=== PATIENT | female | born 1945 | race Caucasian/White ===

== ENCOUNTER 2019-08-06 13:18 | Outpatient (CLI) | payer MEDICARE, SELFPAY ==
--- NOTE | 2019-08-06 13:30 | US_ITS ---
WS: [id number] ABDOMINAL ULTRASOUND LIMITED REASON FOR VISIT: LUQ localized swelling TECHNIQUE: Grayscale and Doppler ultrasound examination of the abdomen. FINDINGS: Left kidney measured 8.85 x 4.44 x 3.97 cm, cortex measured 1.38 cm. The left upper quadrant of the abdomen showed no definite pathological changes no evidence of ascites . The area pain. No evidence of masses or cystic changes. The spleen measures 6.9 x 3.17 cm US/US abdomen limited [id number] IMPRESSION: No definite fluid, masses, are cystic changes. The spleen was normal.
== END 2019-08-06 13:19 | disposition home or self-care (01) ==
PROVIDERS: Family Provider Registered Nurse; PCP Registered Nurse; Visit Provider Registered Nurse
DX: R19.02 Left upper quadrant abdominal swelling, mass and lump (principal)
CPT/HCPCS: 76705

== ENCOUNTER → 2019-11-19 11:32 | Outpatient (BNVA) | payer MEDICARE, SELFPAY | PROVIDERS: Family Provider Registered Nurse; PCP Registered Nurse; Visit Provider Registered Nurse | DX: D51.9 Vitamin B12 deficiency anemia, unspecified (principal); E03.9 Hypothyroidism, unspecified; E55.9 Vitamin D deficiency, unspecified; I10 Essential (primary) hypertension; R53.83 Other fatigue | CPT/HCPCS: 82306; 82607; 84443; 85025; 86141 ==

== ENCOUNTER → 2019-11-25 13:57 | Outpatient (BNVA) | payer MEDICARE, SELFPAY | PROVIDERS: Family Provider Registered Nurse; PCP Registered Nurse; Visit Provider Registered Nurse | DX: I10 Essential (primary) hypertension (principal) | CPT/HCPCS: 85025 ==

== ENCOUNTER → 2019-12-02 09:46 | Outpatient (BNVA) | payer MEDICARE, SELFPAY | PROVIDERS: Family Provider Registered Nurse; PCP Registered Nurse; Visit Provider Registered Nurse | DX: I10 Essential (primary) hypertension (principal); R53.83 Other fatigue | CPT/HCPCS: 85025 ==

== ENCOUNTER 2020-02-17 11:22 | Outpatient (CLI) | payer MEDICARE, SELFPAY ==
--- NOTE | 2020-02-17 11:31 | MM_ITS ---
WS: [id number] BILATERAL DIGITAL DIAGNOSTIC MAMMOGRAM MAMMOGRAPHY WITH CAD CLINICAL INFORMATION: HX OF BREAST CANCER COMPARISON: TECHNIQUE: Bilateral CC, MLO, and ML views. FINDINGS: Scattered fibroglandular densities bilaterally. Punctate and lucent centered left breast calcificatio ns. Vascular calcification. Postoperative changes lumpectomy left breast with parenchymal scarring. No suspicious focal mass, asymmetry, calcifications, or architectural distortion. No evidence of marlen gnancy. MM/[id number] IMPRESSION: BI-RADS: 2-Benign FOLLOW UP: 1 Year Follow-up Recommend return to annual diagnostic mammography.
== END 2020-02-17 11:23 | disposition home or self-care (01) ==
LOC: RADSHAW 11:25
PROVIDERS: Family Provider Registered Nurse; PCP Registered Nurse; Visit Provider Registered Nurse
DX: Z85.3 Personal history of malignant neoplasm of breast (principal); Z12.31 Encounter for screening mammogram for malignant neoplasm of breast
CPT/HCPCS: 77066

== ENCOUNTER → 2020-09-28 15:00 | Outpatient (BNVA) | payer OTHER, SELFPAY | PROVIDERS: Family Provider Registered Nurse; PCP Registered Nurse; Visit Provider Registered Nurse | DX: E53.8 Deficiency of other specified B group vitamins (principal); I10 Essential (primary) hypertension; E55.9 Vitamin D deficiency, unspecified; E03.9 Hypothyroidism, unspecified; E78.5 Hyperlipidemia, unspecified | CPT/HCPCS: 80053; 82306; 82607; 84443; 85025 ==

== ENCOUNTER → 2021-02-16 11:56 | Outpatient (BNVA) | payer OTHER, SELFPAY | PROVIDERS: Family Provider Registered Nurse; PCP Registered Nurse; Visit Provider Nurse Practitioner Family | DX: J01.90 Acute sinusitis, unspecified (principal); J22 Unspecified acute lower respiratory infection; B96.89 Other specified bacterial agents as the cause of diseases classified elsewhere; R06.02 Shortness of breath | CPT/HCPCS: 87400; 87635 ==

== ENCOUNTER 2021-08-10 10:37 | Outpatient (CLI) | payer OTHER, SELFPAY ==
--- NOTE | 2021-08-10 11:07 | MM_ITS ---
WS: [id number] VIEWS: MLO, CC, and ML views both breasts. 3D digital tomosynthesis is also included in this exam. Comparison made with prior exam of 12/03/2014, 12/15/2015, 12/15/2016, 12/17/2017, 01/20/2019, 020. Findings: Stable appearing architectural distortion and skin retraction in the left breast. No new suspicious m ass in either breast. Scattered fibroglandular densities MM/[place] [id number] Impression: BI-RADS: 2-Benign FOLLOW-UP: 1 Year Follow-up This mammogram was also analyzed by the Computer Aided Detection System R2 Imag e Molder Fitting.
== END 2021-08-10 10:38 | disposition home or self-care (01) ==
LOC: RAD 10:41
PROVIDERS: PCP Nurse Practitioner; Visit Provider Nurse Practitioner
DX: Z85.3 Personal history of malignant neoplasm of breast (principal)
CPT/HCPCS: 77062

== ENCOUNTER → 2021-08-17 10:27 | Outpatient (BNVA) | payer OTHER, SELFPAY | PROVIDERS: PCP Nurse Practitioner; Visit Provider Nurse Practitioner | DX: I10 Essential (primary) hypertension (principal); E03.9 Hypothyroidism, unspecified; E78.5 Hyperlipidemia, unspecified | CPT/HCPCS: 80053; 80061; 84443; 85025 ==

== ENCOUNTER 2021-10-10 10:47 | Outpatient (CLI) | payer MEDICARE, SELFPAY ==
--- NOTE | 2021-10-10 11:15 | US_ITS ---
WS: [id number] ULTRASOUND SOFT TISSUES RIGHT gluteal region. HISTORY: R22.41 - Localized swelling, mass and lump, right lower limb COMPARISON: None available. TECHNIQUE: 2-D and color Doppler imaging is submitted. Patient directs examination to the RIGHT gluteal region in the area of interest. There is no soft tis valerie mass identified. Normal appearance of the subcutaneous soft tissue and underlying soft tissue str uctures. There is no mass or distortion. US/US soft tissue/extremity [id number] IMPRESSION: Negative ultrasound RIGHT gluteal region.
== END 2021-10-10 10:48 | disposition home or self-care (01) ==
PROVIDERS: PCP Nurse Practitioner; Visit Provider Nurse Practitioner
DX: R22.41 Localized swelling, mass and lump, right lower limb (principal)
CPT/HCPCS: 76882

== ENCOUNTER 2022-05-08 10:14 | Emergency (ER) | payer MEDICARE, SELFPAY ==
[2022-05-08] VITALS (10 sets, daily range): BP systolic 131–154; BP diastolic 65–104; PULSE 76–114; RESP 14–18; TEMP 36.4; O2SAT 94–98
--- NOTE | 2022-05-08 10:59 | XRR_ITS ---
PROCEDURE INFORMATION: Exam: XR Chest Exam date and time: 05/08/2022 11:09 AM Age: 77 years old Clinical indication: Cough TECHNIQUE: Imaging protocol: Radiologic exam of the chest. Views: 1 view. COMPARISON: CT chest w con* [id number] 01/03/2018 1:37 PM FINDINGS: Tubes, catheters and devices: Surgical clips project over the left axilla. Lungs: Unremarkable. No consolidation. Pleural spaces: Unremarkable. No pleural effusion. No pneumothorax. Heart/Mediastinum: Unremarkable. No cardiomegaly. Bones/joints: Unremarkable. XR/XR chest 1V portable [id number] IMPRESSION: No acute cardiopulmonary abnormality.
--- NOTE | 2022-05-08 11:00 | W.ED.DIZZY ---
HPI - Dizziness General: Chief Complaint: Dizziness Stated Complaint: dizzy/n/v/d Time Seen by Provider: 05/08/22 10:29 Source: patient and family Mode of arrival: ambulatory Limitations: no limitations History of Present Illness: HPI Narrative: Patient is a 77-year-old female presents to ED today along with her daughter for multiple complaints. Her main complaint seems to be dizziness. She states she has had dizziness for at least 3 months now. She states the providers at the [facility] are telling her it is secondary to sinus infections and she is now on her third antibiotic for sinusitis. Patient states dizziness does seem to be somewhat positional although not always. She has been prescribed meclizine and states this does help her dizziness but she does not want to take a lot of pills admittedly does not take it often. She states over the past several days she has felt really unwell with body aches, nausea and one episode of emesis, as well as diarrhea. No blood in vomit or stool. No abdominal pain. No fevers. She reports some lower back pain. She reports a non-productive cough without complaints of chest pain or SOB. She is an everyday smoker. MD elicited complaint: dizziness Severity: moderate History of similar symptoms: Yes Exacerbating factors: movement/ambulation Relieving factors: remaining still and keeping eyes closed Associated symptoms: Reports malaise, nausea and vomiting; Denies chest pain, chills, headache(s), nasal congestion, palpitations, syncope or tinnitus Associated neuro symptoms: Deny confusion or numbness in extremities Stroke scale total: 0 Review of Systems Const: Reports: malaise; Denies: fever(s), chills, body aches or fatigue Eyes: Denies: change in vision, blurry vision, photophobia, floaters or seeing flashes ENMT: Reports: disequilibrium; Denies: throat pain, odynophagia, ear or mastoid pain, tinnitus, nasal discharge, nasal congestion, epistaxis, post nasal drip or sinus pain Card: Denies: chest pain, palpitations, lightheadedness, syncope or pre-syncope Resp: Reports: productive cough and chest congestion; Denies: dyspnea, wheezing or hemoptysis GI: Reports: nausea, vomiting and diarrhea; Denies: abdominal pain, hematemesis, rectal swelling, change in stool character, hematochezia or melena : Reports: dysuria; Denies: flank pain, difficulty voiding, urinary frequency, urinary urgency, urinary hesitancy or pelvic pain Musc: Reports: back pain; Denies: neck pain, extremity pain, extremity swelling, joint pain or joint swelling Skin/Breast: Denies: rash Neuro: Reports: dizziness; Denies: headache(s), numbness in extremities, weakness in extremities, sensory changes, frequent falls, confusion, behavioral changes, Slurred speech present, difficulty communicating thoughts or seizure-like activity PFSH ED PFSH: Medical History Acute bacterial sinusitis History of breast cancer HTN (hypertension) Hyperlipidemia Hypothyroidism (acquired) Lower respiratory infection Shortness of breath Shortness of breath Family History Brother Diabetes CAD (coronary artery disease) Myocardial infarction Social History Smoking and tobacco status: current every day smoker Physical Exam Const: COMMON NORMALS: no acute distress, average body habitus, patient oriented x3, no limitations, healthy appearing, alert and well nourished GENERAL APPEARANCE: cooperative ORIENTATION/CONSCIOUSNESS: Yes awake, Yes oriented to person, Yes oriented to place and Yes oriented to time HENMT: COMMON NORMALS: normocephalic, atraumatic, hearing grossly normal bilaterally, external ears normal, EAC's normal, TM's normal bilaterally and Normal external nose present HEAD & SCALP: normal to inspection, normocephalic and atraumatic FACE & SINUS: normal facial exam NOSE: Normal external nose present EXTERNAL EAR: Yes external ears normal EXTERNAL AUDITORY CANAL: EAC's normal TYMPANIC MEMBRANE: TM's normal bilaterally Eye: COMMON NORMALS: Equal, round and reactive pupils present and EOMs intact bilaterally GENERAL EYE: appearance normal, both eyes and all related structures and normal light reflex PUPIL: Yes Equal, round and reactive pupils present DIRECT OPHTHALMOSCOPY: Yes normal light reflex OTHER: no nystagmus Neck/C-Spine: COMMON NORMALS: full ROM, no lymphadenopathy, supple, no meningeal signs and No carotid bruits GENERAL: Yes normal visual inspection Chest: COMMONS NORMALS: normal inspection of the chest Resp: COMMON NORMALS: normal respiratory effort and clear to auscultation bilaterally AUSCULTATION: clear to auscultation bilaterally Cardio: COMMON NORMALS: regular rate and regular rhythm RATE: regular rate RHYTHM: regular rhythm GI: COMMON NORMALS: Normal to inspection, nondistended, normoactive bowel sounds present, Soft to palpation, non-tender, No hepatosplenomegaly present and no masses PALPATION: Yes Soft to palpation and Yes No hepatosplenomegaly present : COMMON NORMALS: Yes no CVA tenderness BLADDER/KIDNEY EXAM: Yes no CVA tenderness Back/Pelvis: COMMON NORMALS: no CVA tenderness, thoracic and lumbar spine normal to inspection, no thoracic nor lumbar tenderness and thoraco-lumbar ROM normal Extremity: COMMON NORMALS: normal to inspection GENERAL: Yes normal exam except as noted Neuro: PATEL COMA SCALE: document GCS findings [place] coma scale eye opening: Spontaneous [place] coma scale verbal response: Orientated [place] coma scale motor response: Obey commands [place] coma scale total score: 15 COMMON NORMALS: patient oriented x3, CN's II-XII intact bilaterally, moves all extremities, no focal motor deficits, no sensory deficits noted and gait normal SENSORIUM/ORIENTATION: Yes alert, Yes oriented to person, Yes oriented to place and Yes oriented to time MENINGEAL SIGNS: Yes no meningeal signs Skin: COMMON NORMALS: no rashes or lesions noted GENERAL SKIN EXAM: no rashes or lesions noted Course Vital Signs: Vital signs: Vital Signs Temperature 97.6 F 05/08/22 10:19 Pulse Rate 76 05/08/22 13:26 Respiratory Rate 16 05/08/22 13:26 Blood Pressure 138/68 05/08/22 13:15 Pulse Oximetry 97 05/08/22 13:26 Oxygen Delivery Sd thod 05/08/22 10:30 [facility] - Dizziness Medical Decision Making Patient is a 77-year-old female here for multiple complaints including dizziness x at least 3 months. Patient was able to ambulate back to her room without assistance. She is also complaining of feeling generally unwell, nausea with one episode of vomiting, and nonbloody diarrhea. No abdominal pain and abdomen is non-tender with palpation today. She has had some lower back pain. Patient has had a cough for several days with no chest pain/SOB. Patient's work-up here including CBC and CMP are unremarkable. Her UA is suspicious for UTI with 2+ leuks, 5-10 WBCs, 0-4 WBCs and a hazy appearance. When questioned she does tell me she is having dysuria. She is currently taking Augmentin (verified by pharmacy-started on ) prescribed by the [facility]. This should cover for a UTI. We will go ahead and culture her urine. CXR is normal. EKG ordered for complaint of dizziness shows sinus rhythm with a rate of 82. Orthostatics are negative. Dizziness improved with meclizine. At this time I recommended she follow up with PCP but they would like some type of referral for dizziness. I think possible referral to ENT would be a good starting point. Lab Data 05/08/22 11:10 05/08/22 11:10 Radiology Impressions Chest X-Ray 05/08/22 10:59 IMPRESSION: No acute cardiopulmonary abnormality. Laboratory Results WBC 5.9 10^3/uL (4.0-10.0) 05/08/22 11:10 RBC 4.57 10^6/uL (4.1-5.3) 05/08/22 11:10 Hgb 13.7 g/dL (11.5-15.3) 05/08/22 11:10 Hct 41.6 % (37.0-47.0) 05/08/22 11:10 MCV 91.0 fl (81-99) 05/08/22 11:10 MCH 30.0 pg (28.0-34.0) 05/08/22 11:10 MCHC 32.9 g/dL (30.0-36.0) 05/08/22 11:10 RDW 12.0 % (12.1-15.1) L 05/08/22 11:10 Plt Count 158 10^3/cmm (130-400) 05/08/22 11:10 MPV 10.7 fL (7.4-10.4) H 05/08/22 11:10 Neut % (Auto) 71.4 % 05/08/22 11:10 Lymph % (Auto) 14.7 % 05/08/22 11:10 Ray % (Auto) 12.0 % 05/08/22 11:10 Eos % (Auto) 1.4 % 05/08/22 11:10 Baso % (Auto) 0.3 % 05/08/22 11:10 Neut # (Auto) 4.23 10^3/uL (1.8-7.7) 05/08/22 11:10 Lymph # (Auto) 0.9 10^3/uL (0.8-4.8) 05/08/22 11:10 Ray # (Auto) 0.7 10^3/uL (0.2-0.9) 05/08/22 11:10 Eos # (Auto) 0.1 10^3/uL (0.0-0.8) 05/08/22 11:10 Baso # (Auto) 0.0 10^3/uL (0.0-0.1) 05/08/22 11:10 Nucleated RBC % (auto) 0 % 05/08/22 11:10 Nucleated RBCs # 0.0 /100WBC 05/08/22 11:10 Sodium 138 mmol/L (136-145) 05/08/22 11:10 Potassium 3.5 mmol/L (3.5-5.1) 05/08/22 11:10 Chloride 101 mmol/L (98-107) 05/08/22 11:10 Carbon Dioxide 21 mmol/L (22-29) L 05/08/22 11:10 Anion Gap 19.5 (5-19) H 05/08/22 11:10 BUN 8 mg/dL (8-23) 05/08/22 11:10 Creatinine 0.7 mg/dL (0.5-0.9) 05/08/22 11:10 GFR Calculation Not Reportable 05/08/22 11:10 Glucose 90 mg/dL (65-115) 05/08/22 11:10 Calculated Osmolality 284 mOsm/kg (285-295) L 05/08/22 11:10 Calcium 9.1 mg/dL (8.5-10.5) 05/08/22 11:10 Total Bilirubin 0.5 mg/dL (0.15-1.2) 05/08/22 11:10 AST 23 U/L (0-32) 05/08/22 11:10 ALT 14 U/L (0-33) 05/08/22 11:10 Alkaline Phosphatase 93 U/L (35-105) 05/08/22 11:10 Total Protein 7.4 g/dL (6.6-8.7) 05/08/22 11:10 Albumin 4.0 g/dL (3.5-5.2) 05/08/22 11:10 Globulin 3.4 g/dL (1.3-4.6) 05/08/22 11:10 Urine Color Yellow (Yellow) 05/08/22 11:10 Urine Appearance Hazy (CLEAR) A 05/08/22 11:10 Urine pH 6 (5-7) 05/08/22 11:10 Ur Specific [place] 1.015 (1.005-1.030) 05/08/22 11:10 Urine Protein Trace (Negative) H 05/08/22 11:10 Urine Glucose (UA) Norm (Normal) 05/08/22 11:10 Urine Ketones Negative (Negative) 05/08/22 11:10 Urine Blood Neg (Negative) 05/08/22 11:10 Urine Nitrate Negative (Negative) 05/08/22 11:10 Urine Bilirubin Neg (Negative) 05/08/22 11:10 Urine Urobilinogen 4 mg/dL (Negative) H 05/08/22 11:10 Ur Leukocyte Esterase 2+ (Negative) H 05/08/22 11:10 Urine RBC 5-10 /hpf (0-2) H 05/08/22 11:10 Urine WBC 0-4 /hpf (0-5) H 05/08/22 11:10 Ur Squamous Epith Cells 0-4 /hpf (0-5) H 05/08/22 11:10 Amorphous Sediment Not Reportable 05/08/22 11:10 Urine Bacteria None /hpf (NONE) 05/08/22 11:10 Discharge Plan Discharge Patient Disposition: Home Clinical Impression: Dizziness, Acute UTI Condition: Stable Prescriptions: No Action aspirin [Adult Low Dose Aspirin] 81 mg tablet,delayed release (DR/EC) 81 mg PO DAILY lidocaine HCl [Xylocaine] 10 mg/mL (1 %) solution 1 ml IM ONCE Qty: 1 0RF ceftriaxone 1 gram recon soln 1 g IM ONCE Qty: 1 0RF dexamethasone sodium phosphate 10 mg/mL solution 10 mg IM ONCE Qty: 1 0RF albuterol sulfate [ProAir HFA] 90 mcg/actuation HFA aerosol inhaler 1 puff inhalation .q4-6 hrs PRN (Reason: shortness of breath or wheezing) 30 Days Qty: 8.5 2RF fluticasone propionate 50 mcg/actuation spray,suspension 2 spray intranasal DAILY Qty: 16 0RF Rx Instructions: administer into each nostril doxycycline hyclate 100 mg tablet 100 mg PO BID 5 Days Qty: 10 0RF meclizine 25 mg tablet 25 mg PO BID PRN (Reason: dizziness) Qty: 30 2RF cholecalciferol (vitamin D3) 1,250 mcg (50,000 unit) tablet 50,000 unit PO .once a week 90 Days Qty: 12 0RF clopidogrel 75 mg tablet 75 mg PO DAILY Qty: 90 1RF potassium chloride 8 mEq tablet extended release See Rx Instructions .ROUTE .COMPLEX Qty: 180 0RF Dose Instruction: Take 1 tablet by mouth twice daily Rx Instructions: Take 1 tablet by mouth twice daily losartan 50 mg tablet See Rx Instructions .ROUTE .COMPLEX Qty: 180 1RF Dose Instruction: TAKE 1 TABLET BY MOUTH TWICE DAILY Rx Instructions: TAKE 1 TABLET BY MOUTH TWICE DAILY potassium chloride 20 mEq tablet extended release See Rx Instructions PO DAILY Qty: 15 5RF Rx Instructions: 0.5 PO daily; atorvastatin 40 mg tablet See Rx Instructions .ROUTE .COMPLEX Qty: 90 0RF Dose Instruction: TAKE 1 TABLET BY MOUTH EVERY DAY Rx Instructions: TAKE 1 TABLET BY MOUTH EVERY DAY amlodipine 5 mg tablet See Rx Instructions .ROUTE .COMPLEX Qty: 180 1RF Dose Instruction: TAKE 1 TABLET BY MOUTH TWICE DAILY FOR 90 DAYS Rx Instructions: TAKE 1 TABLET BY MOUTH TWICE DAILY FOR 90 DAYS levothyroxine 50 mcg tablet See Rx Instructions .ROUTE .COMPLEX Qty: 90 1RF Dose Instruction: TAKE 1 TABLET BY MOUTH EVERY DAY Rx Instructions: TAKE 1 TABLET BY MOUTH EVERY DAY amoxicillin-pot clavulanate 875-125 mg tablet 1 tab PO BID 14 Days Qty: 28 0RF Discharge Orders: Discharge ED (Routine); Ordered 05/08/22 Ordered By: Kyra Mendez Referrals: ZORAIDA Lucas, NETWORK OPERATIONS TECHNICIAN [Primary Care Provider] - Activity Restrictions/Additional Instructions: We verified through our pharmacy records that you are taking Augmentin antibiotic. This should cover for urinary tract infection. As we discussed I will go ahead and refer you to ENT for possible etiology/evaluation for your dizziness. Recommend he follow-up with primary care in the meantime. Coding Level of Care Code ED Housecalls Nurse for Frederick Tanner
[2022-05-08] MEDS: sodium chloride 0.9% 1,000 ML 999 ML IV (11:19)
[2022-05-08] MEDS: meclizine 25 mg tablet 50 MG PO (11:20)
[2022-05-08 11:32] LABS: Basophils % 0.3 %; Eosinophils # 0.1 10^3/uL (0.0-0.8); Eosinophils % 1.4 %; Hematocrit 41.6 % (37.0-47.0); Hemoglobin 13.7 g/dL (11.5-15.3); Lymphocytes # 0.9 10^3/uL (0.8-4.8); Lymphocytes % 14.7 %; Mean Corpuscular HGB Conc 32.9 g/dL (30.0-36.0); Mean Platelet Volume 10.7 fL (7.4-10.4); Monocytes # 0.7 10^3/uL (0.2-0.9); Neutrophils # 4.23 10^3/uL (1.8-7.7); Neutrophils % 71.4 %; Nucleated Red Blood Cells % 0 %; Platelet Count 158 10^3/cmm (130-400); Red Blood Count 4.57 10^6/uL (4.1-5.3); White Blood Count 5.9 10^3/uL (4.0-10.0)
--- NOTE | 2022-05-08 11:38 | ECG_ITS ---
[facility] Test Date: 2022-05-08 Pat Name: Rachel Segovia Department: Room: Gender: Female Compensation Director: : 1945 Requested By: Kyra Mendez Order Number: [id number] Dmitri MD: Gerber Landis M.D. Measurements Intervals [place] Rate: 82 P: 83 UT: 160 QRS: 76 QRSD: 95 T: 60 QT: 407 QTc: 477 Interpretive Statements SINUS RHYTHM Compared to ECG 08/28/2017 16:28:39 ST (T wave) deviation no longer present Electronically Signed On 05-08-2022 14:27:30 IMPORT COORDINATOR by Gerber Landis M.D. [id number]
[2022-05-08 11:47] LABS: Alanine Aminotransferase 14 U/L (0-33); Alkaline Phosphatase 93 U/L (35-105); Aspartate Amino Transferase 23 U/L (0-32); Blood Urea Nitrogen 8 mg/dL (8-23); Calcium 9.1 mg/dL (8.5-10.5); Carbon Dioxide 21 mmol/L (22-29); Chloride 101 mmol/L (98-107); Globulin 3.4 g/dL (1.3-4.6); Glucose 90 mg/dL (65-115); Osmolality Calculated 284 mOsm/kg (285-295); Sodium 138 mmol/L (136-145); Total Bilirubin 0.5 mg/dL (0.15-1.2); Total Protein 7.4 g/dL (6.6-8.7)
[2022-05-08 12:03] LABS: Anion Gap 19.5 (5-19); Potassium 3.5 mmol/L (3.5-5.1)
[2022-05-08 12:05] LABS: Add Urine Microscopic? YES; Bilirubin Urine Neg (Negative); Blood Urine Neg (Negative); Glucose Urine UA Norm (Normal); Ketones Urine Negative (Negative); Leukocyte Esterase Urine 2+ (Negative); Nitrate Urine Negative (Negative); Protein Urine Trace (Negative); Specific Gravity, Urine 1.015 (1.005-1.030); Urine Appearance Hazy (CLEAR); Urine Color Yellow (Yellow); Urobilinogen Urine 4 mg/dL (Negative); pH Urine 6 (5-7)
[2022-05-08 12:09] LABS: Squamous Epithelial Cell Urine 0-4 /hpf (0-5); WBC Urine 0-4 /hpf (0-5)
[2022-05-08 12:10] LABS: Add Urine Culture? No
--- NOTE | 2022-05-10 09:07 | DCPLANNER ---
Addendum entered by Sumaya Muse 06/23/22 08:50: Patient had a follow up appointment scheduled with ENT - patient did attend appointment. Addendum entered by Sumaya Muse 05/18/22 11:25: Patient has a follow up appointment scheduled for Sunday, June 14, 2022 at 3:[address] Calderon at ENT. Clinic will call patient with appointment information. Original Note: photo lab manager had message to schedule a follow up appointment for patient with ENT. photo lab manager sent patients information to the front office staff at ENT. Patients information will be printed and reviewed. Clinic will call patient with appointment information.
== END 2022-05-08 13:28 | disposition home or self-care (01) ==
PROVIDERS: Emergency Provider Physician Assistant; PCP Nurse Practitioner Family
DX: R42 Dizziness and giddiness (principal); N39.0 Urinary tract infection, site not specified; Z79.82 Long term (current) use of aspirin; Z85.3 Personal history of malignant neoplasm of breast; I10 Essential (primary) hypertension; E78.5 Hyperlipidemia, unspecified; F17.210 Nicotine dependence, cigarettes, uncomplicated
CPT/HCPCS: 71045; 80053; 81001; 85025; 87086; 93005; 96360; 99285; J7030; J8597

== ENCOUNTER → 2022-06-21 10:09 | Outpatient (BNVA) | payer MEDICARE, SELFPAY | PROVIDERS: PCP Nurse Practitioner Family; Visit Provider Otolaryngology | DX: H81.10 Benign paroxysmal vertigo, unspecified ear (principal) | CPT/HCPCS: 99203 ==

== ENCOUNTER 2022-06-27 06:00 | Outpatient (RCR) | payer MEDICARE, SELFPAY | END 2022-07-02 23:59 | disposition home or self-care (01) | LOC: WPT 06:00 | PROVIDERS: Visit Provider Otolaryngology | DX: H81.12 Benign paroxysmal vertigo, left ear (principal) | CPT/HCPCS: 97110; 97112; 97162; 97530 ==

== ENCOUNTER 2022-07-03 06:00 | Outpatient (RCR) | payer MEDICARE, SELFPAY | END 2022-08-02 23:59 | disposition home or self-care (01) | LOC: WPT 06:00 | PROVIDERS: Visit Provider Otolaryngology | DX: H81.10 Benign paroxysmal vertigo, unspecified ear (principal) | CPT/HCPCS: 97110; 97112; 97530 ==

== ENCOUNTER 2022-10-13 12:29 | Outpatient (CLI) | payer MEDICARE, SELFPAY ==
--- NOTE | 2022-10-13 12:55 | MM_ITS ---
WS: [id number] BILATERAL 3D TOMOSYNTHESIS DIGITAL DIAGNOSTIC MAMMOGRAPHY WITH CAD CLINICAL INFORMATION: HXOF BR CA HISTORY: History of breast cancer COMPARISON: 08/10/2021 TECHNIQUE: Bilateral CC, MLO, and ML views. FINDINGS: Scattered fibroglandular densities bilaterally. Punctate and lucent centered left breast calcificatio ns. Vascular calcification. Postoperative changes lumpectomy left breast with parenchymal scarring an d architectural distortion unchanged from previous. No suspicious focal mass, asymmetry, calcifications, or architectural distortion. No evidence of marlen gnancy. IMPRESSION: MM/[place] [id number] BI-RADS: 2-Benign FOLLOW UP: 1 Year Follow-up Recommend return to annual diagnostic mammography.
== END 2022-10-13 12:30 | disposition home or self-care (01) ==
PROVIDERS: PCP Nurse Practitioner Family; Visit Provider Nurse Practitioner Family
DX: Z85.3 Personal history of malignant neoplasm of breast (principal); R92.1 Mammographic calcification found on diagnostic imaging of breast
CPT/HCPCS: 77062; G0279

== ENCOUNTER → 2023-01-11 10:20 | Outpatient (BNVA) | payer MEDICARE, SELFPAY | PROVIDERS: PCP Nurse Practitioner Family; Visit Provider Nurse Practitioner Family | DX: E55.9 Vitamin D deficiency, unspecified (principal); I10 Essential (primary) hypertension; E03.9 Hypothyroidism, unspecified; Z79.899 Other long term (current) drug therapy; D64.9 Anemia, unspecified | CPT/HCPCS: 80053; 80061; 81003; 82306; 82607; 82746; 83036; 84443; 85025 ==

== ENCOUNTER → 2023-07-10 11:44 | Outpatient (BNVA) | payer MEDICARE, SELFPAY | PROVIDERS: PCP Nurse Practitioner Family; Visit Provider Nurse Practitioner Family | DX: E03.9 Hypothyroidism, unspecified (principal); I10 Essential (primary) hypertension; E78.5 Hyperlipidemia, unspecified; Z79.899 Other long term (current) drug therapy; D64.9 Anemia, unspecified | CPT/HCPCS: 80053; 80061; 81003; 83036; 83550; 83735; 84443; 85025 ==

== ENCOUNTER 2024-02-05 10:31 | Outpatient (CLI) | payer MEDICARE, SELFPAY ==
--- NOTE | 2024-02-05 11:00 | MM_ITS ---
WS: [id number] BILATERAL DIAGNOSTIC DIGITAL TOMOSYNTHESIS MAMMOGRAM WITH CAD HISTORY: Z85.3 - Personal history of malignant neoplasm of breast COMPARISON: 10/13/2022, 08/10/2021, 02/17/2020 Bilateral CC, ML and MLO views with tomosynthesis and synthetic mammography submitted. Computer aided detection analyzed. Breast composition: There are scattered areas of fibroglandular density. No suspicious masses, microc alcifications or architectural distortion. Area of distortion and volume loss in the LEFT breast from prior surgery. The postsurgical changes and scarring are stable. Vascular calcifications. MM/MM diag BI tomosynthesis [id number] IMPRESSION: BI-RADS: 2 - Benign. FOLLOW UP: 1 Year Follow-up
== END 2024-02-05 10:32 | disposition home or self-care (01) ==
PROVIDERS: PCP Nurse Practitioner Family; Visit Provider Nurse Practitioner Family
DX: Z85.3 Personal history of malignant neoplasm of breast (principal); R92.323 Mammographic fibroglandular density, bilateral breasts; R92.1 Mammographic calcification found on diagnostic imaging of breast
CPT/HCPCS: 77062; G0279

== ENCOUNTER → 2024-07-21 10:25 | Outpatient (BNVA) | payer MEDICARE, SELFPAY | PROVIDERS: PCP Nurse Practitioner Family; Visit Provider Nurse Practitioner Family | DX: R13.10 Dysphagia, unspecified (principal); Z79.899 Other long term (current) drug therapy; I10 Essential (primary) hypertension; E78.5 Hyperlipidemia, unspecified; E03.9 Hypothyroidism, unspecified | CPT/HCPCS: 80053; 80061; 81003; 82306; 83036; 84439; 84443; 85025 ==

== ENCOUNTER 2025-02-18 13:58 | Outpatient (CLI) | payer MEDICARE, SELFPAY ==
--- NOTE | 2025-02-18 14:06 | MM_ITS ---
WS: [id number] Bilateral diagnostic 3D tomosynthesis digital mammogram, 02/18/2025 Clinical Data: PERSONAL HX OF BREAST CANCER Comparison: 02/05/2024, 10/13/2022, 08/10/2021, 02/17/2020, 01/20/2019, 12/17/2017, 12/15/2016, 12/15/2015, 12/03/2014, 11/27/2013, 11/26/2012, 07/24/2011, 07/07/2010, 12/22/2009, 06/03/2009, 01/06/2009. Findings: The right breast is normal. No spiculated masses nor clustered calcifications are seen. The left breast shows distortion from previous therapy with retraction and central scarring. There are benign vascular calcifications in both breasts. The left breast has diminished volume compared to the right. MM/MM diag BI tomosynthesis [id number] Impression: 1. Postoperative changes in the left breast which are stable. 2. Negative right breast. 3. Recommend annual mammograms. BIRADS: 2 - Benign. FOLLOW UP: 1 Year Follow-up The CAD tip length checker was used
== END 2025-02-18 13:59 | disposition home or self-care (01) ==
LOC: RAD 14:00
PROVIDERS: PCP Nurse Practitioner Family; Visit Provider Nurse Practitioner Family
DX: Z85.3 Personal history of malignant neoplasm of breast (principal); R92.1 Mammographic calcification found on diagnostic imaging of breast; R92.8 Other abnormal and inconclusive findings on diagnostic imaging of breast
CPT/HCPCS: 77062; G0279